=== PATIENT | male | born 1975 | race Caucasian/White ===

== ENCOUNTER 2024-07-27 15:46 | Emergency (ER) | payer OTHER, SELFPAY ==
[2024-07-27 15:47] VITALS: BP 125/94; PULSE 90; RESP 20; TEMP 36.3; O2SAT 100
--- NOTE | 2024-07-27 17:58 | PC.NURSE ---
Pt declined to be seen due to the wait time, pt states I am going to go to a hospital closer to where I live. Pt ambulated out in NAD. Steady gait.
== END 2024-07-27 18:04 | disposition left against medical advice (07) ==
LOC: ANHED 18:01
DX: S61.210A Laceration without foreign body of right index finger without damage to nail, initial encounter (principal); W26.9XXA Contact with unspecified sharp object(s), initial encounter
CPT/HCPCS: 99199

== ENCOUNTER 2024-10-14 08:00 | Outpatient (RCR) | payer BC, SELFPAY ==
--- NOTE | 2024-08-15 09:24 | OTOPEVAL1 ---
Assessment and note entered by HILDA Avila/Nel, CHT Evaluation Information Assessment Status Evaluation Diagnosis Flexor tendon rupture of left hand Subjective Information Patient underwent left middle finger flexor tendon repair 08/05/24. He is right handed. He presents with a custom fabricated dorsal blocking splint. He has been completing active and passive gross flexion of the fingers. He has not been using the hand. Reported Pain Level Pain Score 0: Self Report Assessment OT Clinical Summary Patient referred to OT following left middle finger zone II flexor tendon repair. He has been completing active and passive composite flexion of the finger. Added active and passive hook fist as well as tenodesis within the confines of the DBS. Continued skilled OT indicated for progressive force application to the flexor tendon, HEP instruction, modalities, therapeutic exercises, therapeutic activities, and manual therapy to facilitate return of functional hand ROM, strength , and use for ADLs and work tasks. Plan of Care Interventions Therapeutic Exercise,Manual Therapy,Therapeutic Activities,Hot Pack/Cold Pack,Ultrasound,Paraffin OT Services Indicated Yes Treatment Frequency and 1x/week for 8 visits Duration These treatments will address the objective and functional deficits as defined above. The patient will be advanced safely and appropriately in order for the patient to progress towards his/her prior level of function. Additional exercises will be introduced and as well as a comprehensive home exercise program upon discharge, if needed, ?to ensure carryover of functional gains achieved in the clinic. This treatment plan has been reviewed and agreement upon by the patient.
--- NOTE | 2024-08-15 09:25 | OPREHPOC ---
Outpatient Therapy Plan of Care This is a Multidisciplinary Plan of Care that may contain components documented by all disciplines (PT, OT, and ST.) OT Problem 1 OT Problem #1 Knowledge Deficit OT Goal 1 Goal / Goal Update 1. Patient to be independent with instructed materials. Target Visit 8 OT Problem 2 OT Problem #2 Impaired Flexibility OT Goal 1 Goal / Goal Update 1. Patient to improve to making a hook fist with < 1 cm gap between the finger tips and DPC. Target Visit 8 OT Problem 3 OT Problem #3 Impaired Strength OT Goal 1 Goal / Goal Update Hold strengthening until 8 weeks post op (09/30/24 ): 1. 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 Target Visit 8
--- NOTE | 2024-09-18 09:27 | PCOTNOTE ---
Patient called & cancelled scheduled appointment this date due to work.
--- NOTE | 2024-10-14 08:35 | OTOPDC ---
Assessment and note entered by Eben Beltrán, HILDA/Nel, CHT OT Discharge Summary 10/14/24 Diagnosis Flexor tendon rupture of left hand Subjective Information Patient underwent left middle finger flexor tendon repair 08/05/24. He is right handed. He has progressed out of his orthotic, progressed to strengthening, and reports he is doing well. No pain. He reports no functional limitations and reports he feels like his hand is getting stronger. ROM: When patient makes a fist, the middle finger touches the palm. DIP flexes 50 degrees. When patient makes a hook fist, the middle finger is 3.5 cm away from DPC. Full finger extension: PIP joint progressed to fully straight, DIP progressed to 5 deg. extension lag. 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 (R) gas controller strength 125 lbs. Reported Pain Level Pain Score 0: Self Report Assessment OT Clinical Summary Patient referred to OT following left middle finger zone II flexor tendon repair. Today is 10 weeks post repair. He has been compliant with all materials and has make great progress with therapy . ROM for a full fist has returned to functional limits. DIP flexion with a composite fist measuring 50 degrees. He reports he is able to gas controller any/all objects without difficulty. When making a hook fist there is a 3.5 cm gap between the middle finger tip and the DPC. This measurement has not changed since we initiated hook fist place and holds ~4 weeks ago. 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 Patient is currently independent with all materials. No further skilled OT indicated at this time. Plan of Care OT Services Indicated No
== END 2024-10-31 10:15 | disposition home or self-care (01) ==
LOC: ANHOT 08:00
PROVIDERS: PCP Family Medicine
DX: S66.812A Strain of other specified muscles, fascia and tendons at wrist and hand level, left hand, initial encounter (principal); M79.642 Pain in left hand
CPT/HCPCS: 97018; 97110; 97140; 97165